=== PATIENT | male | born 1955 | race Caucasian/White ===

== ENCOUNTER 2021-03-19 13:36 | Inpatient (IN) | payer MEDICARE ==
[~2021-03-19] VITALS: Ht 177.8 cm; Wt 70.6 kg
[2021-03-19 13:57] LABS: Hematocrit 46.6 % (37.0-53.0); Hemoglobin 16.2 g/dL (13.5-17.5); Mean Corpuscular HGB 29.1 pg (26.0-34.0); Mean Corpuscular HGB Conc 34.8 g/dL (31.5-36.5); Mean Corpuscular Volume 84 fL (80-100); Mean Platelet Volume 11.9 fL (9.1-12.4); Platelet Count 188 K/mm3 (150-400); RDW Coefficient Variation 12.6 % (11.7-14.2); RDW Standard Deviation 38.5 fL (35.1-46.3); Red Blood Cell Count 5.56 M/mm3 (4.30-5.90)
[2021-03-19 14:11] LABS: International Normalized Ratio 1.04; Prothrombin Time Results 10.9 Sec (9.7-11.5)
[2021-03-19] MEDS ORDERED: PRED5 PO (14:16)
[2021-03-19] MEDS ORDERED: METFORMIN HCL500 M2 PO (14:16)
[2021-03-19] MEDS ORDERED: GLIMEPIRIDE2 M2 PO (14:16)
[2021-03-19] MEDS ORDERED: LIPITOR80 MG PO (14:16)
[2021-03-19 14:33] LABS: Influenza A, PCR NEGATIVE (NEGATIVE); Influenza B, PCR NEGATIVE (NEGATIVE); Resp Syncytial Virus, PCR NEGATIVE (NEGATIVE); SARS-Cov-2 (COVID-19) PCR, MMC NEGATIVE (NEGATIVE)
[2021-03-19 14:44] LABS: Alanine Aminotransfer (ALT/SGP 46 U/L (12-78); Albumin, Blood 3.6 g/dL (3.4-5.0); Albumin/Globulin Ratio 0.9 (0.8-1.8); Alk Phos 66 U/L (50-136); Anion Gap 10 mmol/L (6-16); Aspartate Aminotrans (AST/SGOT 32 U/L (12-37); Bilirubin, Total 0.7 mg/dL (0.1-1.0); Blood Urea Nitrogen 13 mg/dL (8-24); Bun/Creatinine Ratio 17.6 (12.0-20.0); CHOL/HDL RATIO 4.1; CO2, Blood 21 mmol/L (21-32); Calcium, Blood 9.6 mg/dL (8.5-10.1); Chloride, Blood 105 mmol/L (98-108); Cholesterol 170 mg/dL (50-200); Creatinine, Blood 0.74 mg/dL (0.60-1.20); Globulin, Blood 3.8 g/dL (2.2-4.0); Glomerular Filtration Rate >60 (60-); Glucose, Blood 368 mg/dL (70-99); HDL Cholesterol 41 mg/dL (>39); LDL/HDL RATIO 2.5; Low Density Lipoprotein Chol 103 mg/dL (0-110); Magnesium, Blood 1.7 mg/dL (1.6-2.4); Potassium, Blood 4.2 mmol/L (3.5-5.5); Sodium, Blood 136 mmol/L (136-145); Total Protein, Blood 7.4 g/dL (6.4-8.2); Triglycerides 131 mg/dL (30-160); Very Low Density Lipoprot Chol 26 mg/dL (6-32)
--- NOTE | 2021-03-19 16:10 | NUR ---
UPDATED DR. GRANADO ON PATIENT STATUS. INFORMED THAT INSTRUCTIONS FROM CHIEF PETROLEUM ENGINEER STATED TO INFUSE AGGRASTAT AT 0.154 MCG/ KG/ MINUTE (13.5 MLS/ HOUR) BUT THAT ORDER IN EMAR STATED TO INFUSE AT 0.075 MCG/ KG/ MINUTE (6.6 MLS/ HOUR). DR. GRANADO STATED TO INFUSE AT ORDER IN EMAR PLACED BY PHARMACY.
--- NOTE | 2021-03-19 16:30 | NUR ---
SHIFT ASSESSMENT PATIENT ARRIVED FROM DRILL SHARPENER OPERATOR AT 1537. PATIENT RECEIVED 5 STENTS. PATIENT IN GOOD SPIRITS. PATIENT ALERT AND ORIENTED X 4. PATIENT AFEBRILE. PATIENT DENIES PAIN, CHEST PRESSURE, N/T. TR BAND IN PLACE TO R RADIAL. 11 CC AIR IN CUFF. NO BLEEDING, BRUISING, HEMATOMA NOTED. RESP WNL. PATIENT SATTING 90% AND GREATER ON 3 L NC. LUNGS CLEAR T/O. PATIENT IN ST WITH BBB, HR LOW 100S. SBP IN THE LOW 100S. GI WNL. LAST BM TODAY. WNL. URINAL AT BEDSIDE. AGGRASTAT INFUSING AT 0.075 MCG/ KG/ MINUTE. BED LOW, CALL LIGHT IN REACH. PATIENT ORIENTED TO UNIT, ROOM AND CALL LIGHT. WILL CONTINUE TO MONITOR FREQUENTLY.
--- NOTE | 2021-03-19 17:44 | NUR ---
3 CC AIR DEFLATED FROM R TR BAND. NO BLEEDING, BRUISING, HEMATOMA NOTED. ARMBOARD IN PLACE. WILL CONTINUE TO MONITOR.
--- NOTE | 2021-03-19 18:03 | NUR ---
3 CC AIR DEFLATED FROM TR BAND. NO BLEEDING, BRUISING, HEMATOMA NOTED. ARMBOARD IN PLACE. WILL CONTINUE TO MONITOR.
--- NOTE | 2021-03-19 18:29 | NUR ---
3 CC AIR DEFLATED FROM TR BAND. NO BLEEDING, BRUISING, HEMATOMA NOTED. ARMBOARD REPLACED. WILL CONTINUE TO MONITOR.
--- NOTE | 2021-03-19 18:40 | NUR ---
TR BAND COMPLETELY DEFLATED. NO BLEEDING, BRUISING, HEMATOMA NOTED. TR BAND AND ARMBOARD REMAIN IN PLACE. AGGRASTAT DRIP STOPPED.
--- NOTE | 2021-03-19 19:21 | NUR ---
SHIFT SUMMARY PATIENT REMAINED ALERT AND ORIENTED X 4, AFEBRILE. PATIENT HAD NO COMPLAINTS OF PAIN, CHEST PRESSURE OR N/T. TR BAND DEFLATED THIS SHIFT. TR BAND AND ARMBOARD REMAIN IN PLACE. NO BLEEDING, BRUISING, OR HEMATOMA NOTED. RESP WNL. PATIENT REMAINED SR TO ST WITH BBB, HR 90S TO LOW 100S. SBP 90S TO 120S. GI WNL. WNL. NS INFUSING AT 100 MLS/ HOUR. AGGRASTAT STOPPED AT 1630 HAD INFUSED FOR TOTAL OF 4 HOURS. BLOOD GLUCOSE 267; COVERAGE ADMINISTERED. AND DAUGHTER IN TO SEE PATIENT AFTER ARRIVED TO ICU. PATIENT HAS NO COMPLAINTS AT THIS TIME. BED LOW, CALL LIGHT IN REACH. REPORT HAS BEEN GIVEN TO ASSUMING INSPECTOR SALVAGE NURSE.
--- NOTE | 2021-03-19 20:30 | NUR ---
TR BAND REMOVED, OPSITE PLACED - SITE WNL. ARM BOARD TO R FA IN PLACE. PT DENIES ANY COMPLAINTS OF PAIN, CHEST PAIN, SOB, NAUSEA, OR DIZZINESS. PT IS ON RA - SATS WNL. NORMAL SALINE INFUSING AT 100CC HOUR WITHOUT COMPLICATIONS X1 BAG. FLUIDS/FOOD AT BEDSIDE. PT REPORTS HE IS A BRITTLE DIABETIC, AND REPORTS WHEN HE HAS RECEIVED INSULIN IN THE PAST, HIS BLOOD SUGAR DROPS - PT DOESN'T MEET THE REQUIREMENTS FOR INSULIN TONIGHT. CALL LIGHT WITHIN REACH. BED IN LOW POSITION.
[2021-03-20 02:07] LABS: BASOPHILS ABSOLUTE AUTO 0.02 K/mm3 (0.00-0.23); BASOPHILS PERCENT AUTO 0 % (0-2); EOSINOPHILS ABSOLUTE AUTO 0.02 K/mm3 (0.00-0.68); EOSINOPHILS PERCENT AUTO 0 % (0-6); Hematocrit 38.6 % (37.0-53.0); Hemoglobin 13.4 g/dL (13.5-17.5); IMMATURE GRAN ABSOLUTE AUTO 0.03 K/mm3 (0.00-0.10); IMMATURE GRAN PERCENT AUTO 0 % (0-1); LYMPHOCYTES PERCENT AUTO 8 % (21-46); MONOCYTES ABSOLUTE AUTO 0.85 K/mm3 (0.16-1.47); MONOCYTES PERCENT AUTO 7 % (4-13); Mean Corpuscular HGB 29.5 pg (26.0-34.0); Mean Corpuscular HGB Conc 34.7 g/dL (31.5-36.5); Mean Corpuscular Volume 85 fL (80-100); Mean Platelet Volume 11.9 fL (9.1-12.4); NEUTROPHILS ABSOLUTE AUTO 10.47 K/mm3 (1.96-9.15); NEUTROPHILS PERCENT AUTO 84 % (41-73); Platelet Count 146 K/mm3 (150-400); RDW Coefficient Variation 12.8 % (11.7-14.2); RDW Standard Deviation 39.2 fL (35.1-46.3); Red Blood Cell Count 4.54 M/mm3 (4.30-5.90); White Blood Cell Count 12.39 K/mm3 (4.00-11.30)
[2021-03-20 02:25] LABS: Anion Gap 6 mmol/L (6-16); Blood Urea Nitrogen 11 mg/dL (8-24); Bun/Creatinine Ratio 15.8 (12.0-20.0); CO2, Blood 23 mmol/L (21-32); Calcium, Blood 8.8 mg/dL (8.5-10.1); Chloride, Blood 111 mmol/L (98-108); Glomerular Filtration Rate >60 (60-); Glucose, Blood 220 mg/dL (70-99); Potassium, Blood 4.1 mmol/L (3.5-5.5); Sodium, Blood 140 mmol/L (136-145)
--- NOTE | 2021-03-20 06:05 | NUR ---
SHIFT SUMMARY - NO ACUTE CHANGES THROUGHOUT THIS SHIFT. PT HAS DENIED CHEST PAIN. PT'S MAIN COMPLAINT WAS LACK OF SLEEP, DUE TO NASAL STUFFINESS - ORDERED OBTAINED FOR AFRIN PER PT REQUEST. PT DENIED ANY CHEST PAIN OR DISCOMFORT. RIGHT ARM TR BAND SITE IS WNL. PT TOLERATED PO FLUIDS WITHOUT COMPLICATIONS. CALL LIGHT WITHIN REACH. BED IN LOW POSITION. FLUIDS AT BEDSIDE. WILL CONTINUE TO MONITOR UNTIL AM SHIFT.
--- NOTE | 2021-03-20 09:05 | NUR ---
INITIAL ASSESSMENT PATIENT ALERT AND ORIENTED X 4, AFEBRILE. PATIENT DENIES PAIN, CHEST PAIN/ PRESSURE, N/T. R RADIAL SITE WNL- NO BLEEDING, BRUISING, HEMATOMA NOTED; TEGADERM IN PLACE AND ARMBOARD IN PLACE. RESP WNL. PATIENT SATTING 90% AND GREATER ON RA. LUNGS CLEAR T/O. PATIENT IN SR WITH BBB, HR IN THE 90S. SBP 90S TO LOW 100S. GI WNL. WNL. IV FLUSHED AND SALINE LOCKED. BED LOW, CALL LIGHT IN REACH. WILL CONTINUE TO MONITOR PATIENT FREQUENTLY THROUGHOUT SHIFT.
--- NOTE | 2021-03-20 12:00 | NUR ---
PATIENT AFEBRILE. NO COMPLAINTS OF PAIN. HR IN THE 80S. SBP 120. BLOOD SUGAR 270. R RADIAL SITE REMAINS WNL. NO OTHER ACUTE CHANGES TO NOTE ON AT THIS TIME. WILL CONTINUE TO MONITOR.
--- NOTE | 2021-03-20 17:30 | NUR ---
PATIENT AFEBRILE. NO COMPLAINTS OF PAIN. HR IN THE LOW 100S. BP 115/66. BLOOD GLUCOSE OF 216. R RADIAL SITE REMAINS WNL- NO BLEEDING, BRUISING, HEMATOMA NOTED. NO OTHER ACUTE CHANGES TO NOTE ON AT THIS TIME. WILL CONTINUE TO MONITOR.
--- NOTE | 2021-03-20 17:57 | NUR ---
SHIFT SUMMARY PATIENT REMAINED ALERT AND ORIENTED X 4, AFEBRILE. PATIENT HAD NO COMPLAINTS OF PAIN, CHEST PRESSURE OR NAUSEA. R RADIAL SITE REMAINS WNL; NO BLEEDING, BRUISING, OR HEMATOMA NOTED. OPSITE REMAINS C/D/I. LUNGS REMAINED CLEAR. PATIENT REMAINS SATTING 90% AND GREATER. PATIENT SR TO ST WITH BBB, HR 80S TO LOW 100S. SBP 90S TO 120S. GI AND REMAINED WNL. IV REMAINS SALINE LOCKED. ECHO PERFORMED THIS SHIFT. BLOOD SUGARS IN THE 200S; COVERAGE GIVEN BEFORE EACH MEAL. HERE TO VISIT THIS AFTERNOON. PATIENT SUCCESSFULLY TRANSFERRED TO PCU 11.
--- NOTE | 2021-03-20 18:32 | NUR ---
Pt transferred from ICU at 1800. A&O, pleasant with cares. Right radial site looks clean dry and nontender with no hematoma present. Pt declines chest pain. PRN nasal spray given. Ind in room.
--- NOTE | 2021-03-21 06:08 | NUR ---
SHIFT SUMMARY PATIENT IS A PLESANT MAN WHO IS A&OX4 AND UP IND IN ROOM. VSS. SR/ST IN THE 80'S-100'S WITH A BBB. NO CHEST PAIN. RIGHT RADIAL SITE C/D/I. ON RA. TROPS TRENDING DOWN. TOLERATING ADA DIET WITHOUT ISSUE. VOIDING WELL WITH BATHROOM PRIVLEDGES. STATES HE IS MORE THAN READY TO GO HOME TODAY. WILL CONTINUE PLAN OF CARE UNTIL REPORT GIVEN TO CHELLY SOTO.
[2021-03-21 06:14] LABS: BASOPHILS ABSOLUTE AUTO 0.02 K/mm3 (0.00-0.23); BASOPHILS PERCENT AUTO 0 % (0-2); EOSINOPHILS ABSOLUTE AUTO 0.15 K/mm3 (0.00-0.68); EOSINOPHILS PERCENT AUTO 2 % (0-6); Hematocrit 38.8 % (37.0-53.0); Hemoglobin 13.3 g/dL (13.5-17.5); IMMATURE GRAN ABSOLUTE AUTO 0.03 K/mm3 (0.00-0.10); IMMATURE GRAN PERCENT AUTO 0 % (0-1); LYMPHOCYTES ABSOLUTE AUTO 1.13 K/mm3 (0.84-5.20); LYMPHOCYTES PERCENT AUTO 12 % (21-46); MONOCYTES ABSOLUTE AUTO 1.05 K/mm3 (0.16-1.47); MONOCYTES PERCENT AUTO 11 % (4-13); Mean Corpuscular HGB 29.2 pg (26.0-34.0); Mean Corpuscular HGB Conc 34.3 g/dL (31.5-36.5); Mean Corpuscular Volume 85 fL (80-100); Mean Platelet Volume 11.6 fL (9.1-12.4); NEUTROPHILS ABSOLUTE AUTO 6.91 K/mm3 (1.96-9.15); NEUTROPHILS PERCENT AUTO 74 % (41-73); Platelet Count 129 K/mm3 (150-400); RDW Coefficient Variation 12.9 % (11.7-14.2); RDW Standard Deviation 39.1 fL (35.1-46.3); Red Blood Cell Count 4.56 M/mm3 (4.30-5.90); White Blood Cell Count 9.29 K/mm3 (4.00-11.30)
--- NOTE | 2021-03-21 06:25 | NUR ---
SHIFT SUMMARY PATIENT ADMITTED TO FLOOR AT APPROXIMETLY OO45 AND IS A&OX4 WITH SOME GENERALIZED WEAKNESS. UP WITH STAND BY ASSIST TO BATHROOM AND CALLING APPROPRIATELY. CLD AFTER MIDNIGHT FOR SCOPE IN AM. NO NAUSEA. ONE UNIT OF PLATLETS GIVEN IN ER AND RECHECK IMPROVED UP TO 67. Q6H CBC CONTINUSE. ONE LOOSE BM UPON ADMIT BUT NO BLOOD NOTED IN STOOL. UROSTOMY WITH CRANBERRY COLORED OUTPUT. VSS. ON RA. SOME DYSPNEA NOTED ON EXERTION. PROTONIX RUNNING PER ORDER. NO ACUTE CONCERNS AT THIS TIME. WILL CONTINUE PLAN OF CARE UNTIL REPORT GIVEN TO HCELLY SOTO.
[2021-03-21 06:44] LABS: Anion Gap 8 mmol/L (6-16); Blood Urea Nitrogen 10 mg/dL (8-24); Bun/Creatinine Ratio 13.6 (12.0-20.0); CO2, Blood 23 mmol/L (21-32); Calcium, Blood 8.5 mg/dL (8.5-10.1); Chloride, Blood 110 mmol/L (98-108); Creatinine, Blood 0.74 mg/dL (0.60-1.20); Glomerular Filtration Rate >60 (60-); Glucose, Blood 227 mg/dL (70-99); Potassium, Blood 3.7 mmol/L (3.5-5.5); Sodium, Blood 141 mmol/L (136-145)
[2021-03-21] MEDS ORDERED: CLOP75 PO (09:36)
[2021-03-21] MEDS ORDERED: Aspir 8181 MG PO (09:36)
[2021-03-21] MEDS ORDERED: METO25 PO (09:37)
--- NOTE | 2021-03-21 10:31 | NUR ---
PATIENT ALERT AND ORIENTED X4. NEURO WNL. ON ROOM AIR. TELE SHOWING SINUS RHYTHM WITH HR 90'S. POST ANGIO 03/19 WITH 5 STENTS [address]ED. RIGHT RADIAL SITE HEALING WNL. TEGADERM IN PLACE. POST ANGIO EDUCATION PROVIDED. NO SIGNS OF BLEEDING OR HEMATOMA. SOFT AND NONTENDER. DENIES CHEST PAIN/PRESSURE. VITAL SIGNS STABLE. DR. CARR IN TO SEE PATIENT THIS AM. UP IN ROOM IND. DENIES NEEDS. DISCHARGE ORDERS REVIEWED AND QUESTIONS ANSWERED. IV TAKEN OUT WNL. AND DAUGHTER IN TO FREELANCE DISPLAYER PATIENT. PATIENT LEFT UNIT AT 1010 WITH ALL PERSONAL BELONGINGS.
== END 2021-03-21 10:17 | disposition home or self-care (01) | DRG 246 ==
LOC: ER 13:36 → ICUW 13:50 → ICUE 13:50 → PCU 03-20 17:49
PROVIDERS: Student in an Organized Health Care Education/Training Program; ADMIT Internal Medicine Cardiovascular Disease
PROC: 027237Z Dilation of Coronary Artery, Three Arteries with Four or More Drug-eluting Intraluminal Devices, Percutaneous Approach (ICD-10-PCS; principal; 2021-03-19)
PROC: 4A023N7 Measurement of Cardiac Sampling and Pressure, Left Heart, Percutaneous Approach (ICD-10-PCS; 2021-03-19)
PROC: B2111ZZ Fluoroscopy of Multiple Coronary Arteries using Low Osmolar Contrast (ICD-10-PCS; 2021-03-19)
PROC: B2151ZZ Fluoroscopy of Left Heart using Low Osmolar Contrast (ICD-10-PCS; 2021-03-19)
DX: I21.09 ST elevation (STEMI) myocardial infarction involving other coronary artery of anterior wall (principal); R57.0 Cardiogenic shock; G61.0 Guillain-Barre syndrome; E78.5 Hyperlipidemia, unspecified; Z20.822 Contact with and (suspected) exposure to COVID-19; E11.65 Type 2 diabetes mellitus with hyperglycemia; Z88.0 Allergy status to penicillin; Z88.1 Allergy status to other antibiotic agents; Z79.899 Other long term (current) drug therapy; Z79.84 Long term (current) use of oral hypoglycemic drugs; Z79.52 Long term (current) use of systemic steroids
CPT/HCPCS: 0241U; 36415; 71045; 76937; 80048; 80053; 80061; 82947; 83735; 84484; 85025; 85027; 85347; 85520; 85610; 85730; 86850; 86900; 86901; 93005; 93010; 96374; 99152; 99153; 99285-25; A9270; C1725; C1769; C1874; C1887; C1894; C8929; C9600; C9601; C9606; J1265; J1644; J2250; J2370; J3010; J3246; J7030; Q9957; Q9967

== ENCOUNTER 2022-12-19 10:08 | Inpatient (IN) | payer MEDICARE ==
[2022-12-19] VITALS (7 sets, daily range): BP systolic 110–132; BP diastolic 75–109
[~2022-12-19] VITALS: Ht 177.8 cm; Wt 73.7 kg
[~2022-12-19 10:08] MED LIST: Aspir 8181 MG PO; CLOP75 PO; GLIMEPIRIDE2 M2 PO; LIPITOR80 MG PO; METFORMIN HCL500 M2 PO; METO25 PO; PRED5 PO
[2022-12-19 10:25] LABS: Calcium, Ionized (POC) 1.17 mmol/L (1.10-1.46); Chloride (POC) 106 mmol/L (98-108); Creatinine (POC) 0.7 mg/dL (0.8-1.3); Glucose (ISTAT POC) 246 mg/dL (70-99); Hemoglobin (POC) 14.6 g/dL (13.5-17.5); Potassium (POC) 4.1 mmol/L (3.5-5.5); Sodium (POC) 140 mmol/L (135-148); Total CO2 (POC) 22 mmol/L (21-32)
[2022-12-19 10:36] LABS: BASOPHILS ABSOLUTE AUTO 0.04 K/mm3 (0.00-0.23); BASOPHILS PERCENT AUTO 1 % (0-2); EOSINOPHILS ABSOLUTE AUTO 0.28 K/mm3 (0.00-0.68); EOSINOPHILS PERCENT AUTO 4 % (0-6); Hematocrit 41.6 % (37.0-53.0); Hemoglobin 14.3 g/dL (13.5-17.5); IMMATURE GRAN ABSOLUTE AUTO 0.02 K/mm3 (0.00-0.10); IMMATURE GRAN PERCENT AUTO 0 % (0-1); LYMPHOCYTES ABSOLUTE AUTO 1.53 K/mm3 (0.84-5.20); LYMPHOCYTES PERCENT AUTO 21 % (21-46); MONOCYTES ABSOLUTE AUTO 0.72 K/mm3 (0.16-1.47); MONOCYTES PERCENT AUTO 10 % (4-13); Mean Corpuscular HGB 29.9 pg (26.0-34.0); Mean Corpuscular HGB Conc 34.4 g/dL (31.5-36.5); Mean Corpuscular Volume 87 fL (80-100); Mean Platelet Volume 11.8 fL (9.1-12.4); NEUTROPHILS ABSOLUTE AUTO 4.87 K/mm3 (1.96-9.15); NEUTROPHILS PERCENT AUTO 65 % (41-73); Platelet Count 187 K/mm3 (150-400); RDW Coefficient Variation 13.2 % (11.7-14.2); RDW Standard Deviation 41.5 fL (35.1-46.3); Red Blood Cell Count 4.79 M/mm3 (4.30-5.90); White Blood Cell Count 7.46 K/mm3 (4.00-11.30)
[2022-12-19 10:52] LABS: Albumin, Blood 3.7 g/dL (3.4-5.0); Albumin/Globulin Ratio 1.3 (0.8-1.8); Bilirubin, Total 0.5 mg/dL (0.1-1.0); Bun/Creatinine Ratio 11.2 (12.0-20.0); Calcium, Blood 9.2 mg/dL (8.5-10.1); Creatinine, Blood 0.8 mg/dL (0.60-1.20); Globulin, Blood 2.9 g/dL (2.2-4.0); Magnesium, Blood 1.7 mg/dL (1.6-2.4); Potassium, Blood 4.1 mmol/L (3.5-5.5); Total Protein, Blood 6.6 g/dL (6.4-8.2)
--- NOTE | 2022-12-19 14:04 | NUR ---
PT WHEELED TO PCU 18. PT ALERT AND TALKATIVE. PRESSURE DRESSING IN PLACE OVER PACEMAKER SITE. VVS. FAMILY TO PCU. REPORT TO NURSE PRACTITIONER PHYSICIAN ASSISTANT AND AND PACMAKER CARD AND NEXT APPOINTMENT WITH PT.
[2022-12-19] MEDS ORDERED: Lisinopril2.5 MG PO (14:25)
[2022-12-19] MEDS ORDERED: MAGOX 400400 MG PO (14:26)
[2022-12-19] MEDS ORDERED: Ascorbic Acid500 M2 PO (14:27)
[2022-12-19] MEDS ORDERED: Vitamin D1000 UNI1 PO (14:27)
[2022-12-19] MEDS ORDERED: AFRIN15 M6 (14:28)
--- NOTE | 2022-12-19 14:30 | NUR ---
ADMISSION ASSESSMENT: Pt arrived to room pcu 18 from [facility]. Oriented to room, unit, call light and plan of care. Denies questions. Family at bedside. A/O x4. Pressure dressing to L chest wall noted. Pt c/o some aching and tenderness at site. Will treat per orders. Ice pack and sling applied. VSS. Pt educated on activity restrictions. Denies questions. Call light in reach. Will monitor.
--- NOTE | 2022-12-19 19:18 | NUR ---
Shift summary: Pt Sitting at edge of bed with family at bedside. States that he is still having some tenderness and ache at pacer site. Dressing clean and intact. No swelling noted. Pt denies needs. Pt was given post-pacer instructions from dr. Thacker. Denies ines. Stable at end of shift. Will report to night RN.
[2022-12-20 00:39] VITALS: BP 101/70
[2022-12-20 03:48] LABS: BASOPHILS ABSOLUTE AUTO 0.03 K/mm3 (0.00-0.23); BASOPHILS PERCENT AUTO 0 % (0-2); EOSINOPHILS ABSOLUTE AUTO 0.18 K/mm3 (0.00-0.68); EOSINOPHILS PERCENT AUTO 2 % (0-6); Hematocrit 37.7 % (37.0-53.0); Hemoglobin 13.3 g/dL (13.5-17.5); IMMATURE GRAN ABSOLUTE AUTO 0.03 K/mm3 (0.00-0.10); IMMATURE GRAN PERCENT AUTO 0 % (0-1); LYMPHOCYTES PERCENT AUTO 13 % (21-46); MONOCYTES ABSOLUTE AUTO 0.74 K/mm3 (0.16-1.47); MONOCYTES PERCENT AUTO 8 % (4-13); Mean Corpuscular HGB 30.3 pg (26.0-34.0); Mean Corpuscular HGB Conc 35.3 g/dL (31.5-36.5); Mean Corpuscular Volume 86 fL (80-100); Mean Platelet Volume 11.5 fL (9.1-12.4); NEUTROPHILS ABSOLUTE AUTO 7.08 K/mm3 (1.96-9.15); NEUTROPHILS PERCENT AUTO 77 % (41-73); Platelet Count 153 K/mm3 (150-400); RDW Coefficient Variation 13.3 % (11.7-14.2); RDW Standard Deviation 41.5 fL (35.1-46.3); Red Blood Cell Count 4.39 M/mm3 (4.30-5.90); White Blood Cell Count 9.26 K/mm3 (4.00-11.30)
[2022-12-20 04:11] LABS: Albumin, Blood 3.1 g/dL (3.4-5.0); Albumin/Globulin Ratio 1.1 (0.8-1.8); Bilirubin, Total 0.4 mg/dL (0.1-1.0); Bun/Creatinine Ratio 14.4 (12.0-20.0); Calcium, Blood 8.3 mg/dL (8.5-10.1); Creatinine, Blood 0.84 mg/dL (0.60-1.20); Globulin, Blood 2.7 g/dL (2.2-4.0); Total Protein, Blood 5.8 g/dL (6.4-8.2)
[2022-12-20 05:01] VITALS: BP 101/70
--- NOTE | 2022-12-20 05:48 | NUR ---
Shift Summary Pt on tele, he ran SR between 80-95 t/o the night. No c/o of dizzyness or weakness. Dressing remains C/D/I. Incision site is still painful, using cold compress and PRN [place] as ordered. AOx4, independent in room.
[2022-12-20 09:15] VITALS: BP 119/74
[2022-12-20] MEDS ORDERED: Norco 5-325 Ta1 EACH PO (10:17)
[2022-12-20] MEDS ORDERED: CEPH500 PO (10:17)
[2022-12-20] MEDS ORDERED: VISBIOME 112.51 EACH PO (10:17)
[2022-12-20] MEDS ORDERED: METO25ER PO (10:18)
--- NOTE | 2022-12-20 11:10 | NUR ---
DISCHARGE NOTE: PATIENT AND PATIENTS FAMILY WERE EDUCATED ON DISCHARGE INSTRUCTIONS. ALL FAMILY AND PATIENT VERBALIZED UNDERSTANDING OF EDUCATION AND HAD NO FURTHER QUESTIONS AT THIS TIME. PATIENT HAS HIS PACEMAKER BLUE BOX WITH HIS PACEMAKER INFORMATION, PATIENTS SCHEDULED APPOINTMENTS PAPERWORK, AND WELL THE PACEMAKER DISCHARGE PACKET. HARD PERSCRIPTION WAS PLACED IN DISCHARGE FOLDER WHICH PATIENT IS AWARE OF. HIS LEFT SHOULDER HAS THE MEDIPORE DRESSING THAT WAS PLACED BY DR. MARCIAL THAT IS C/D/I WITH SLING IN PLACE. DENIES NUMBNESS OR TINGLING IN ALL EXTREMITIES AND CAN MOVE ALL FINGERS AND TOES. PAIN IS MANAGED WITH ORAL PAIN MEDICATIONS. HE IS TOLERATING PO INTAKE AND IS VOIDING. PATIENT IS DRESSED AND HAS PERSONAL ITEMS IN THE ROOM GATHERED AND IS WALKING OUT WITH FAMILY TO THE FAMILIES CAR TO BE TAKEN HOME.
== END 2022-12-20 11:20 | disposition home or self-care (01) | DRG 244 ==
LOC: ER 10:08 → ICUE 10:09 → PCU 10:09
PROVIDERS: Student in an Organized Health Care Education/Training Program; ADMIT Internal Medicine
PROC: 0JH606Z Insertion of Pacemaker, Dual Chamber into Chest Subcutaneous Tissue and Fascia, Open Approach (ICD-10-PCS; principal; 2022-12-19)
PROC: 02H63JZ Insertion of Pacemaker Lead into Right Atrium, Percutaneous Approach (ICD-10-PCS; 2022-12-19)
PROC: 02HK3JZ Insertion of Pacemaker Lead into Right Ventricle, Percutaneous Approach (ICD-10-PCS; 2022-12-19)
DX: I44.2 Atrioventricular block, complete (principal); I25.10 Atherosclerotic heart disease of native coronary artery without angina pectoris; E11.9 Type 2 diabetes mellitus without complications; E78.5 Hyperlipidemia, unspecified; D64.9 Anemia, unspecified; Z95.5 Presence of coronary angioplasty implant and graft; Z88.0 Allergy status to penicillin; I25.2 Old myocardial infarction; Z88.1 Allergy status to other antibiotic agents; Z79.52 Long term (current) use of systemic steroids; Z79.82 Long term (current) use of aspirin; Z79.84 Long term (current) use of oral hypoglycemic drugs; Z79.02 Long term (current) use of antithrombotics/antiplatelets; Z79.899 Other long term (current) drug therapy; Z86.69 Personal history of other diseases of the nervous system and sense organs
CPT/HCPCS: 33208; 33210; 36415; 71045; 76937; 80047; 80053; 82947; 83735; 85014; 85025; 93005; 93010; 93308; 93321; 99152; 99153; 99285-25; A9270; C1781; C1785; C1894; C1898; J1644; J1815; J2250; J3010; J3370; J3475; J7030; J7040; J7050